=== PATIENT | female | born 1995 | race Caucasian/White ===

== ENCOUNTER 2017-01-08 02:13 | Emergency (ER) | payer BC ==
[2017-01-08 02:29] VITALS: BP 120/84
[2017-01-08] MEDS ORDERED: Ibuprofen TAB* 600 MG PO ONE (06:26)
--- NOTE | 2017-01-08 08:20 | RAD ---
HISTORY: Left ankle pain, foot pain, injury COMPARISONS: None VIEWS: 6, Frontal, lateral, and oblique views of the left foot and of the left ankle FINDINGS: BONE DENSITY: Normal. BONES: There is no displaced fracture. JOINTS: There is no arthropathy. ALIGNMENT: There is hallux valgus SOFT TISSUES: Unremarkable. OTHER FINDINGS: None. IMPRESSION: HALLUX VALGUS. NO ACUTE OSSEOUS INJURY TO THE LEFT FOOT OR LEFT ANKLE. IF SYMPTOMS PERSIST, RECOMMEND REPEAT IMAGING.
--- NOTE | 2017-01-08 10:12 | ED ---
Barron Jones Thomas, scribed for Mine Arredondo MD on 01/08/17 at 0934 . Lower Extremity - HPI Summary HPI Summary: The pt is a 21 y/o F presenting to the ED c/o L ankle pain s/p a fall that occurred earlier tonight. She was wearing heels and she admits to alcohol use earlier, although there are no signs of intoxication in the ED. The pain is greatest on the lateral side of the ankle. The pt rates the pain 2/10. The pain is aggravated by movement/flexion and alleviated by nothing. 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 Pt additionally c/o L ankle swelling, L ankle bruising, and a small abrasion to her hand from the fall. Pt denies calf pain. She accepts pain medication. She is previously healthy. PSHx of [facility]. She is a non-smoker and drinks occasionally. FHx of [place]. She has an IUD and has not menstruated in over a year. She is accompanied by two friends. - History of Current Complaint Chief Complaint: EDExtremityLower Stated Complaint: LT ANKLE INJURY Time Seen by Provider: 01/08/17 06:19 Hx Obtained From: Patient, Family/Mechanics Handyman - friends present in the ED Mechanism Of Injury: Fall From A Standing Position Onset of Pain: Immediate Onset/Duration: Hours - fall was earlier tonight Severity Initially: Moderate Severity Currently: Moderate Pain Intensity: 2 Pain Scale Used: 0-10 Numeric Timing: Constant Location: Is Discrete @ - L ankle, lateral Character Of Pain: Aching Associated Signs And Symptoms: Positive: Swelling - L ankle, Bruising - L ankle , left foot, Other - NEGATIVE: calf pain Aggravating Factor(s): Movement, Other - Flexion Alleviating Factor(s): Nothing Able to Bear Weight: Yes - Allergies/Home Medications Allergies/Adverse Reactions: Allergies Allergy/AdvReac Type Severity Reaction Status Date / Time No Known Allergies Allergy Verified 01/08/17 02:27 PMH/Surg Hx/FS Hx/Imm Hx Previously Healthy: Yes Endocrine/Hematology History: Denies: Hx Diabetes Cardiovascular History: Denies: Hx Hypertension - Surgical History Surgery Procedure, Year, and Place: [facility] Infectious Disease History: No Infectious Disease History: Reports: Traveled Outside the [place] in Last 30 Days - Family History Known Family History: Positive: Other - [place] Negative: Hypertension, Diabetes - Social History Occupation: Student Lives: Dormitory/Roommates Alcohol Use: Occasionally Hx Substance Use: No Substance Use Type: Reports: None Hx Tobacco Use: No Smoking Status (MU): Never Smoked Tobacco Review of Systems Negative: Fever Positive: Other - L ankle pain, L ankle swelling; NEGATIVE: calf pain Positive: Bruising - L ankle and left foot , Other - Small abrasion to her left hand Neurological: Negative Psychological: Normal All Other Systems Reviewed And Are Negative: Yes Physical Exam Triage Information Reviewed: Yes Vital Signs On Initial Exam: Initial Vitals Temp Pulse Resp BP Pulse Ox 99 F 84 18 120/84 98 01/08/17 02:25 01/08/17 02:25 01/08/17 02:25 01/08/17 02:25 01/08/17 02:25 Vital Signs Reviewed: Yes Appearance: Positive: Well-Appearing, Well-Nourished, Pain Distress Skin: Positive: Warm, Skin Color Reflects Adequate Perfusion, Other - Bruising to the fourth and fifth metatarsal and left lateral ankle Head/Face: Positive: Normal Head/Face Inspection Eyes: Positive: Conjunctiva Clear ENT: Positive: Normal ENT inspection Neck: Positive: Supple Respiratory/Lung Sounds: Positive: Clear to Auscultation, Breath Sounds Present , Other - No respiratory distress Cardiovascular: Positive: RRR, Pulses are Symmetrical in both Upper and Lower Extremities, Other - Brisk cap refill. Negative: Murmur Abdomen Description: Positive: Nontender, Soft Bowel Sounds: Positive: Present Musculoskeletal: Positive: Strength/ROM Intact, Other - She is tender to the left lateral malleolus. There is swelling and bruising at the fourth and fifth metatarsal, and left lat malleolus. No tenderness of the Achilles tendon. Neurological: Positive: Sensory/Motor Intact, Alert, Oriented to Person Place, Time, Facial Symmetry, Speech Normal Psychiatric: Positive: Affect/Mood Appropriate Diagnostics - Vital Signs Vital Signs Temp Pulse Resp BP Pulse Ox 01/08/17 02:25 99 F 84 18 120/84 98 - Laboratory Lab Statement: Any lab studies that have been ordered have been reviewed, and results considered in the medical decision making process. - Radiology XR Foot Xray Interpretation: No Acute Changes - no acute osseous injury of the left foot. ED physician has reviewed this report and agrees. Radiology Interpretation Completed By: Radiologist XR Ankle Xray Interpretation: No Acute Changes - no acute osseous injury of the left ankle. ED physician has reviewed this report and agrees. Radiology Interpretation Completed By: Radiologist Lower Extremity Course/Dx - Course Course Of Treatment: High blood pressure noted. Patients medications reviewed this visit. Assessment/Plan: The pt is a 21 y/o F presenting to the ED c/o L ankle pain s/p a fall that occurred earlier tonight. She was wearing heels and she admits to alcohol use earlier, although there are no signs of intoxication in the ED. Patients medication reviewed this visit. Blood pressure noted. In the ED course the patient was given ibuprofen. XR Foot and Ankle show no acute osseous injury of the left foot or ankle. ED physician has reviewed this report and agrees. Patient will be discharged home with follow up by PCP and orthopedics. Pt is agreeable with this plan. - Diagnoses Differential Diagnosis/HQI/PQRI: Positive: Contusion, Fracture (Closed), Sprain , Strain Provider Diagnoses: Contusion of foot, left, Ankle sprain, Sprain of foot, left Discharge - Discharge Plan Condition: Stable Disposition: HOME Patient Education Materials: Ankle Sprain (ED), Foot Sprain (ED) [facility]errals[facility] [Primary Care Provider] - Miriam Vora MD [Medical Doctor] - 5 Days Additional Instructions: The preliminary reading of your ankle and foot xrays is negative. We have give you an jo bandage, a post op shoe, a gel ankle splint, and crutches. You should not bear weight if it is painful. Follow up with orthopedics, Dr. Vora, if there is no improvement in your symptoms, or a fracture is noted on the final xray reading. Return to the ER with any new or worsening symptoms. You were given ibuprofen 600mg at 0630am for pain. You may take this 3 times a day for pain and swelling as needed. The documentation as recorded by the Barron flowers Thomas accurately reflects the service I personally performed and the decisions made by , Mine Arredondo MD.
== END 2017-01-08 08:52 | disposition home or self-care (01) ==
LOC: ED 02:13
DX: S90.32XA Contusion of left foot, initial encounter (principal); S93.402A Sprain of unspecified ligament of left ankle, initial encounter; S93.602A Unspecified sprain of left foot, initial encounter; W19.XXXA Unspecified fall, initial encounter; Y92.9 Unspecified place or not applicable; M20.12 Hallux valgus (acquired), left foot
CPT/HCPCS: 99282; A9270-GY